=== PATIENT | male | born 1995 | race Caucasian/White ===

== ENCOUNTER 2018-10-18 09:48 | Emergency (ER) | payer SELFPAY ==
[~2018-10-18] VITALS: Ht 182.9 cm; Wt 74.4 kg
[~2018-10-18 09:48] MED LIST: CEPH-443 PO; HYDR-4011 PO; SULF1TAB31 PO
[2018-10-18 09:55] VITALS: Ht 182.9 cm; Wt 74.4 kg
[2018-10-18] MEDS ORDERED: HYDROmorphONE 2 MG/ML SYG IM STA (11:33)
[2018-10-18] MEDS ORDERED: ONDANSETRON (ODT) 4 MG TAB ODT STA (11:33)
[2018-10-18] MEDS ORDERED: LIDOCAINE 1% (MDV) 20 ML INJ SC ONE (12:00)
[2018-10-18 12:50] VITALS: BP 116/69; PULSE 58; RESP 18
== END 2018-10-18 12:51 | disposition home or self-care (01) ==
LOC: FTE 09:48
DX: L02.212 Cutaneous abscess of back [any part, except buttock and flank] (principal)
CPT/HCPCS: 10060; 96372; 99284; J1170